=== PATIENT | male | born 1990 | race Asian ===

== ENCOUNTER 2021-10-18 20:19 | Emergency (ER) | payer MEDICAID ==
[~2021-10-18] VITALS: Ht 170.2 cm; Wt 71.3 kg
[2021-10-18 20:50] VITALS: BP 125/75
[2021-10-18] MEDS ORDERED: LORazepam 0.5 MG TAB PO ONE (21:00)
[2021-10-18] MEDS ORDERED: ONDANSETRON 4 MG ODT PO ONE (21:00)
--- NOTE | 2021-10-18 21:00 | NUR ---
SEE COMPLETE ASSESSMENT FOR FURTHER INFORMATION. PT RETURNED TO THE LOBBY TO A/W BED.
[2021-10-18] MEDS ORDERED: ONDA-188 PO (21:04)
[2021-10-18] MEDS ORDERED: LORazepam 0.5 MG TAB ONE (21:04)
== END 2021-10-18 22:08 | disposition home or self-care (01) ==
LOC: MED 20:19
DX: F43.0 Acute stress reaction (principal); R45.1 Restlessness and agitation
CPT/HCPCS: 99283; Q0162